=== PATIENT | female | born 1940 | race Caucasian/White ===

== ENCOUNTER 2017-09-10 17:16 | Emergency (ER) | payer OTHER ==
[2017-09-10] MEDS: IBUPROFEN 600 MG TAB PO (22:36)
[2017-09-10] MEDS: ONDANSETRON (ODT) 4 MG TAB ODT (22:37)
[2017-09-10] MEDS: ALBUTEROL 0.083% (NEB) 2.5 MG/3 ML AMP HHN (23:37)
[2017-09-10] MEDS: IPRATROPIUM (NEB) 0.5 MG/2.5 ML AMP HHN (23:37)
== END 2017-09-11 01:22 | disposition home or self-care (01) ==
LOC: E/R 17:16
DX: J20.9 Acute bronchitis, unspecified (principal); E11.9 Type 2 diabetes mellitus without complications; I10 Essential (primary) hypertension; Z79.84 Long term (current) use of oral hypoglycemic drugs; Z79.82 Long term (current) use of aspirin
CPT/HCPCS: 93005; 94664; 99284-25